=== PATIENT | male | born 1975 | race Caucasian/White ===

== ENCOUNTER → 2022-05-23 | Outpatient (CLI) | payer OTHER, SELFPAY ==
--- NOTE | 2022-05-23 13:53 | ECHOD_ITS ---
Reason For Study: HTN Procedure This was a 2D Doppler, Color Flow transthoracic echocardiogram. Exam performed in department. Left Ventricle Normal LV size. Left ventricular systolic function is normal. The estimated ejection fraction is 60 %. No regional wall motion abnormalities noted. Right Ventricle Normal RV size. Normal systolic function. Atria Normal left atrium. Normal right atrium. Mitral Valve Normal mitral valve. Tricuspid Valve Normal tricuspid valve. Aortic Valve Normal aortic valve. Trisinus/trileaflet aortic valve. Pulmonic Valve Normal pulmonic valve. Great Vessels Normal aortic root. The pulmonary artery is normal size. Normal inferior vena cava. Pericardium/Pleural No pericardial effusion. MMode/2D Measurements & Calculations LVIDd: 5.2 cm IVSd: 0.65 cm Ao root diam: 3.7 cm LVIDs: 3.2 cm LVPWd: 0.79 cm RVDd: 3.9 cm FS: 38.6 % LAV(MOD-bp): 58.9 ml LVAd ap4: 30.8 cm2 SV(MOD-sp4): 63.4 ml LAV(MOD-bp) Indexed: 26.5 ml/m2 LVLd ap4: 8.4 cm LAV(MOD-sp2): 73.6 ml EDV(MOD-sp4): 91.6 ml LAV(MOD-sp4): 41.1 ml EDV(sp4-el): 96.7 ml LVAs ap4: 15.0 cm2 LVLs ap4: 6.5 cm ESV(MOD-sp4): 28.2 ml ESV(sp4-el): 29.0 ml EF(MOD-sp4): 69.2 % EF(sp4-el): 70.0 % SV(sp4-el): 67.6 ml LA A4 area: 16.1 cm2 LA dimension(2D): 3.8 cm RA A4 area: 12.4 cm2 Time Measurements MV dec time: 0.24 sec Doppler Measurements & Calculations MV E max lico: 35.9 cm/sec Lat Peak E' Lico: 9.4 cm/sec Med Peak E' Lico: 5.5 cm/sec MV A max lico: 53.0 cm/sec E/E' lat: 3.8 E/E' med: 6.5 MV E/A: 0.68 MV V2 max: 57.8 cm/sec Ao V2 max: 141.8 cm/sec MV max P.3 mmHg MV dec slope: 210.2 cm/sec2 Ao max P.0 mmHg MV V2 mean: 38.5 cm/sec Ao V2 mean: 100.4 cm/sec MV mean P.65 mmHg Ao mean P.6 mmHg MV V2 VTI: 21.2 cm Ao V2 VTI: 32.1 cm LV V1 max: 109.1 cm/sec PA V2 max: 100.3 cm/sec TR max lico: 211.0 cm/sec LV V1 max P.8 mmHg TR max P.8 mmHg LV V1 mean P.8 mmHg LV V1 mean: 79.7 cm/sec LV V1 VTI: 25.1 cm ECHO/Echo Complete Interpretation Summary Normal LV size. Left ventricular systolic function is normal. The estimated ejection fraction is 60 %. Structurally normal valves. Ordering Physician: Omer Vences MD Referring Physician: Omer Vences Performed By: Rosanna Hayes RCS
== END | disposition home or self-care (01) ==
LOC: CVS 13:52
PROVIDERS: Referring Provider Internal Medicine Cardiovascular Disease; Visit Provider Internal Medicine Cardiovascular Disease
DX: I10 Essential (primary) hypertension (principal)
CPT/HCPCS: 93306

== ENCOUNTER → 2023-06-10 | Outpatient (CLI) | payer OTHER, SELFPAY ==
[2023-06-10 17:46] LABS: Anion Gap 7 (5-15); BUN 14 mg/dL (7-18); BUN/Creat Ratio 13.5 RATIO (10-20); Calcium,Total 8.9 mg/dL (8.5-10.1); Chloride 107 mmol/L (98-107); Creatinine, Serum 1.04 mg/dL (0.70-1.30); EST Glomerular Filtration Rate 82 mL/min (>60); Est Glom Filt Rate - Afr Amer 99 mL/min (>60); Glucose 148 mg/dL (74-106); Potassium 3.3 mmol/L (3.5-5.1); Sodium Level 139 mmol/L (136-145)
== END | disposition home or self-care (01) ==
LOC: LAB 16:50
PROVIDERS: Referring Provider Nurse Practitioner Gerontology; Visit Provider Nurse Practitioner Gerontology
DX: I10 Essential (primary) hypertension (principal)
CPT/HCPCS: 36415; 80048

== ENCOUNTER → 2023-07-19 | Outpatient (CLI) | payer OTHER, SELFPAY ==
[2023-07-19 09:44] LABS: Anion Gap 4 (5-15); BUN 13 mg/dL (7-18); Calcium,Total 8.7 mg/dL (8.5-10.1); Chloride 106 mmol/L (98-107); Creatinine, Serum 1.18 mg/dL (0.70-1.30); EST Glomerular Filtration Rate 71 mL/min (>60); Est Glom Filt Rate - Afr Amer 85 mL/min (>60); Glucose 135 mg/dL (74-106); Potassium 3.9 mmol/L (3.5-5.1); Sodium Level 141 mmol/L (136-145)
== END | disposition home or self-care (01) ==
LOC: LAB 08:52
PROVIDERS: Visit Provider Nurse Practitioner Gerontology
DX: I10 Essential (primary) hypertension (principal)
CPT/HCPCS: 36415; 80048

== ENCOUNTER → 2023-10-29 | Outpatient (CLI) | payer OTHER, SELFPAY ==
[2023-10-29 16:57] LABS: Anion Gap 4 (5-15); BUN 23 mg/dL (7-18); BUN/Creat Ratio 20.2 RATIO (10-20); Calcium,Total 9.1 mg/dL (8.5-10.1); Chloride 105 mmol/L (98-107); Creatinine, Serum 1.14 mg/dL (0.70-1.30); EST Glomerular Filtration Rate 73 mL/min (>60); Est Glom Filt Rate - Afr Amer 89 mL/min (>60); Glucose 88 mg/dL (74-106); Potassium 4.4 mmol/L (3.5-5.1); Sodium Level 137 mmol/L (136-145)
== END | disposition home or self-care (01) ==
LOC: LAB 16:02
PROVIDERS: Referring Provider Nurse Practitioner Family; Visit Provider Nurse Practitioner Family
DX: G47.19 Other hypersomnia (principal); I10 Essential (primary) hypertension
CPT/HCPCS: 36415; 80048

== ENCOUNTER 2024-09-16 07:15 | Day surgery (SDC) | payer OTHER, SELFPAY ==
--- NOTE | 2024-09-14 09:40 | PAT.ANESEVAL ---
PAT status Pat Assessment PAT Assessment: PAT Anesthesia Results to Eval 09/14/24 08:31 Pre-Assessment Diagnosis/Proposed Procedure Planned Operative Procedure(s): COLONOSCOPY Anesthesia History Anesthesia History - engineer soils: Anesthesia History - engineer soils Hx Hospitalization No 09/14/24 08:19 Any Problems With Anesthesia No 09/14/24 08:19 Cholinesterase deficiency No 09/14/24 08:19 You/Your Family Experience No 09/14/24 08:19 fever (hyperthermia) with Relationship Recent Exposure to Contagious Disease Does patient have nerve No 09/14/24 08:19 stimulator Patient instructed to have device shut off --Does patient have Pacemaker or ICD? When Was Last Pacemaker Check QUESTION #4 FULL TEXT: You/Your Family Experience fever (hyperthermia) with Anesthesia Last Oral Intake Last Oral intake: Last Oral Intake NPO since Meds taken in AM with sips of water? Meds patient instructed to take am of surgery PONV PONV - engineer soils: PONV - engineer soils Female No 09/14/24 08:19 HX of Motion Sickness No 09/14/24 08:19 HX of N/V After Surgery No 09/14/24 08:19 Non-Smoker Yes 09/14/24 08:19 Duration of Surgery greater No 09/14/24 08:19 than 60 minutes Number of Risk Factors 1 09/14/24 08:19 PONV Score Low Risk 09/14/24 08:19 Height & Weight Height & Weight: Anesthesia: Height & Weight Height 5 ft 11 in 09/06/24 13:46 Respiratory Assessment Respiratory Assessment - engineer soils: Respiratory Tract Infection Hx - engineer soils Hx Respiratory Tract Infection No 09/14/24 08:19 STOP Sleep Apnea STOP Sleep Apnea - engineer soils: STOP Sleep Apnea - engineer soils Hx Hypertension Yes 09/14/24 08:19 Hx Sleep Apnea No 09/14/24 08:19 CPAP BIPAP Do you snore loudly (louder No 09/14/24 08:19 than talking or can be heard Do you often feel tired/ No 09/14/24 08:19 fatigued/ sleepy during daytime? Has anyone observed you stop No 09/14/24 08:19 breathing during sleep? STOP Results Negative 09/14/24 08:19 QUESTION #5 FULL TEXT : Do you snore loudly (louder than talking or can be heard through closed doors)? 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 Specify any problems Hx of Preganancy in last 3 N/A 09/14/24 08:19 Months Nurse Filling Out Transfusion VLEHGREENBUSH 09/14/24 08:19 & Questions: Date: 09/14/24 09/14/24 08:19 Time: 08:09/14/24 08:19 Patient unable to answer at this time (ie. confused, unrespo /Reproduction History /Reproductive History - engineer soils: /Reproductive Hx- engineer soils Hx Now Gestational Age (in weeks): EDC: Hx Hx Para Hx Section SAB [facility] Medical History (Updated 09/14/24 @ 08:28 by Ruth Guerrero) Wears glasses Injury of back Seizures Gastric reflux Non-smoker Hypertension History of echocardiogram History of stress test Cardiology follow-up encounter Essential hypertension Obesity Home Medications ?Medication ?Instructions ?Recorded ?Last Taken ?Type amlodipine 10 mg tablet 10 mg PO DAILY #90 tabs 09/15/23 Unknown Rx omeprazole 20 mg capsule,delayed 20 mg PO DAILY #90 caps 09/15/23 Unknown Rx release spironolactone 25 mg tablet 25 mg PO DAILY #90 tabs 10/10/23 Unknown Rx lisinopril 10 mg tablet 10 mg PO DAILY #90 tabs 10/31/23 Unknown Rx Allergy/AdvReac Type Severity Reaction Status Date / Time No Known Allergies Allergy Verified 09/06/24 13:43 Family History (Updated 09/06/24 @ 13:43 by Lilli Castro) Brother Colon polyps Found younger than 45yrs Other Cancer Surgical History (Updated 09/14/24 @ 08:20 by Ruth Guerrero) History of vasectomy Pilonidal cyst Social History (Updated 09/06/24 @ 13:43 by Lilli Castro) household members: spouse current occupational status: employed Smoking Status: Never smoker alcohol intake: current alcohol intake frequency: a few times a month substance use type: does not use caffeine: Yes Type: coffee Number of servings: 5 Audit: Pertinent Findings Pertinent Findings EKG Perinent findings: nl 05/21 Stress test pertinent findings: nl 2021 Echo (EF%) pertinent findings: nl 2021
--- NOTE | 2024-09-14 10:09 | PAT.ANESEVAL ---
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 When Was Last Pacemaker Check QUESTION #4 FULL TEXT: You/Your Family Experience fever (hyperthermia) with Anesthesia Last Oral Intake Last Oral intake: Last Oral Intake NPO since Meds taken in AM with sips of water? Meds patient instructed to take am of surgery PONV PONV - loan service officer: PONV - loan service officer Female No 09/14/24 08:19 HX of Motion Sickness No 09/14/24 08:19 HX of N/V After Surgery No 09/14/24 08:19 Non-Smoker Yes 09/14/24 08:19 Duration of Surgery greater No 09/14/24 08:19 than 60 minutes Number of Risk Factors 1 09/14/24 08:19 PONV Score Low Risk 09/14/24 08:19 Height & Weight Height & Weight: Anesthesia: Height & Weight Height 5 ft 11 in 09/06/24 13:46 Respiratory Assessment Respiratory Assessment - loan service officer: Respiratory Tract Infection Hx - loan service officer Hx Respiratory Tract Infection No 09/14/24 08:19 STOP Sleep Apnea STOP Sleep Apnea - loan service officer: STOP Sleep Apnea - loan service officer Hx Hypertension Yes 09/14/24 08:19 Hx Sleep Apnea No 09/14/24 08:19 CPAP BIPAP Do you snore loudly (louder No 09/14/24 08:19 than talking or can be heard Do you often feel tired/ No 09/14/24 08:19 fatigued/ sleepy during daytime? Has anyone observed you stop No 09/14/24 08:19 breathing during sleep? STOP Results Negative 09/14/24 08:19 QUESTION #5 FULL TEXT : Do you snore loudly (louder than talking or can be heard through closed doors)? 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 Specify any problems Hx of Preganancy in last 3 N/A 09/14/24 08:19 Months Nurse Filling Out Transfusion VLEHROSS 09/14/24 08:19 & Questions: Date: 09/14/24 09/14/24 08:19 Time: 08:09/14/24 08:19 Patient unable to answer at this time (ie. confused, unrespo /Reproduction History /Reproductive History - loan service officer: /Reproductive Hx- loan service officer Hx Now Gestational Age (in weeks): EDC: Hx Hx Para Hx Section SAB [facility] Medical History (Updated 09/14/24 @ 08:28 by Ruth Guerrero) Wears glasses Injury of back Seizures Gastric reflux Non-smoker Hypertension History of echocardiogram History of stress test Cardiology follow-up encounter Essential hypertension Obesity Home Medications ?Medication ?Instructions ?Recorded ?Last Taken ?Type amlodipine 10 mg tablet 10 mg PO DAILY #90 tabs 09/15/23 Unknown Rx omeprazole 20 mg capsule,delayed 20 mg PO DAILY #90 caps 09/15/23 Unknown Rx release spironolactone 25 mg tablet 25 mg PO DAILY #90 tabs 10/10/23 Unknown Rx lisinopril 10 mg tablet 10 mg PO DAILY #90 tabs 10/31/23 Unknown Rx Allergy/AdvReac Type Severity Reaction Status Date / Time No Known Allergies Allergy Verified 09/06/24 13:43 Family History (Updated 09/06/24 @ 13:43 by Lilli Castro) Brother Colon polyps Found younger than 45yrs Other Cancer Surgical History (Updated 09/14/24 @ 08:20 by Ruth Guerrero) History of vasectomy Pilonidal cyst Social History (Updated 09/06/24 @ 13:43 by Lilli Castro) household members: spouse current occupational status: employed Smoking Status: Never smoker alcohol intake: current alcohol intake frequency: a few times a month substance use type: does not use caffeine: Yes Type: coffee Number of servings: 5 Audit: Pertinent Findings HISTORY of Pertinent Findings History of Pertinent Findings: EKG Pertinent Findings EKG Perinent findings 05/2109/14/24 09:44 Stress Test Pertinent Findings Stress test pertinent findings nl 202109/14/24 09:44 Echo Pertinent Findings Echo (EF%) pertinent findings nl 202109/14/24 09:44
[2024-09-16] VITALS (7 sets, daily range): BP systolic 106–139; BP diastolic 79–87; PULSE 64–80; RESP 16; TEMP 36.2–36.7; O2SAT 95–98; BMI 31.0
--- NOTE | 2024-09-16 | COLBX_PTH ---
PATIENT: JUAN SELLERS LOC: EN U#:[id number] AGE/SX: 49/M ROOM: RE09/16/[address]: Dr. Neel Roblero MD : 1975 BED: DIS: 09/16/2024 SPEC #: [id number] RECD: 09/16/24 13:26 STATUS: LIONEL ANNIE #: [id number] ELIZABETH: 09/16/24 00:[address]: Neel Roblero DEPT: SURGICAL PATHOLOGY RECD BY: Dave Mcgraw ENTERED: 09/16/24 13:27 SP TYPE: COLON BX OTHR DR: No Primary Care Phys Tissues: Ascending colon Procedures: Surgery Specimen Level IV HEADER OPERATION: Colonoscopy PRE-OP DIAGNOSIS: Encounter for screening for malignant neoplasm of colon TISSUE SUBMITTED: Ascending colon submucosal lipoma biopsy MICROSCOPIC DIAGNOSIS Ascending colon, biopsy: Fragments of colonic mucosa, no pathologic diagnosis. See navjot. 09/17 COMMENT Changes consistent with submucosal lipoma are not seen. Correlation with clinical, endoscopic findings and appropriate follow up are necessary. MICROSCOPIC DESCRIPTION Slides are reviewed. GROSS DESCRIPTION Received in fixative is one container labeled with the patient's name and designated Ascending colon submucosal lipoma biopsy. The specimen consists of two irregular fragments of light maradiaga soft tissue that in aggregate measure 0.6 x 0.2 x 0.1 cm. The specimen is totally submitted in one cassette. 09/16/2024 TC:4 CPT:19603
--- NOTE | 2024-09-16 07:46 | PRE.ANES_ITS ---
ASA Classification* ASA Classification ASA Classification: 2 Assessment & Plan Anesthesia* Anesthesia Assessment Anesthesia Assessment: Discussed sedation and/or anesthesia options, risks, benefits, and alternatives with patient/parents/legal guardian/POA. Questions invited. The patient/parents/legal guardian/POA seems to understand and agrees to proceed with anesthesia plan. Reviewed the physical assessment, medical history, allergy history and patient home medications list prior to surgery/procedure/anesthetic and documented any changes. Performed airway and anesthesia risk assessments. 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 When Was Last Pacemaker Check QUESTION #4 FULL TEXT: You/Your Family Experience fever (hyperthermia) with Anesthesia Last Oral Intake Last Oral intake: Last Oral Intake NPO since Meds taken in AM with sips of water? Meds patient instructed to take am of surgery PONV PONV - mobile home servicer: PONV - mobile home servicer Female No 09/14/24 08:19 HX of Motion Sickness No 09/14/24 08:19 HX of N/V After Surgery No 09/14/24 08:19 Non-Smoker Yes 09/14/24 08:19 Duration of Surgery greater No 09/14/24 08:19 than 60 minutes Number of Risk Factors 1 09/14/24 08:19 PONV Score Low Risk 09/14/24 08:19 Height & Weight Height & Weight: Anesthesia: Height & Weight Height 5 ft 11 in 09/06/24 13:46 Respiratory Assessment Respiratory Assessment - mobile home servicer: Respiratory Tract Infection Hx - mobile home servicer Hx Respiratory Tract Infection No 09/14/24 08:19 STOP Sleep Apnea STOP Sleep Apnea - mobile home servicer: STOP Sleep Apnea - mobile home servicer Hx Hypertension Yes 09/14/24 08:19 Hx Sleep Apnea No 09/14/24 08:19 CPAP BIPAP Do you snore loudly (louder No 09/14/24 08:19 than talking or can be heard Do you often feel tired/ No 09/14/24 08:19 fatigued/ sleepy during daytime? Has anyone observed you stop No 09/14/24 08:19 breathing during sleep? STOP Results Negative 09/14/24 08:19 QUESTION #5 FULL TEXT : Do you snore loudly (louder than talking or can be heard through closed doors)? 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 Specify any problems Hx of Preganancy in last 3 N/A 09/14/24 08:19 Months Nurse Filling Out Transfusion VLEHMAN 09/14/24 08:19 & Questions: Date: 09/14/24 09/14/24 08:19 Time: 08:29 09/14/24 08:19 Patient unable to answer at this time (ie. confused, unrespo /Reproduction History /Reproductive History - mobile home servicer: /Reproductive Hx- mobile home servicer Hx Now Gestational Age (in weeks): EDC: Hx Hx Para Hx Section SAB [facility] Medical History Wears glasses Injury of back Seizures Gastric reflux Non-smoker Hypertension History of echocardiogram History of stress test Cardiology follow-up encounter Essential hypertension Obesity Home Medications ?Medication ?Instructions ?Recorded ?Last Taken ?Type amlodipine 10 mg tablet 10 mg PO DAILY #90 tabs 09/15/23 09/16/24 Rx omeprazole 20 mg capsule,delayed 20 mg PO DAILY #90 caps 09/15/23 09/15/24 Rx release spironolactone 25 mg tablet 25 mg PO DAILY #90 tabs 10/10/23 09/15/24 Rx lisinopril 10 mg tablet 10 mg PO DAILY #90 tabs 10/31/23 09/15/24 Rx Allergy/AdvReac Type Severity Reaction Status Date / Time No Known Allergies Allergy Verified 09/06/24 13:43 Family History Brother Colon polyps Found younger than 45yrs Other Cancer Surgical History History of vasectomy Pilonidal cyst Social History household members: spouse current occupational status: employed Smoking Status: Never smoker alcohol intake: current alcohol intake frequency: a few times a month substance use type: does not use caffeine: Yes Type: coffee Number of servings: 5 Review of Systems (Anesthesia) ROS Narrative System reviewed and no additional complaints, except as documented.
--- NOTE | 2024-09-16 08:56 | HP.PCM_ITS ---
[facility] - General General Date of Service: 09/16/24 HPI Narrative JUAN SELLERS, is a 49 M who presents screening colonoscopy. He confirms his preappointment questionnaire that he has not experienced any change in her bowel habits-and particularly denies any notice of blood. He also shares that there is a family history of colonic polyps but denies any family history of GI illness to include diverticulitis, inflammatory bowel disease, or colon cancer. Lastly he confirms that his prep was completed successfully and that his output is now clear. As an aside he shares that he has had a foul-smelling discharge with working out and wonders if this can be investigated with today's exam. [facility] Medical History Wears glasses Injury of back Seizures Gastric reflux Non-smoker Hypertension History of echocardiogram History of stress test Cardiology follow-up encounter Essential hypertension Obesity Home Medications ?Medication ?Instructions ?Recorded ?Last Taken ?Type amlodipine 10 mg tablet 10 mg PO DAILY #90 tabs 09/15/23 09/16/24 Rx omeprazole 20 mg capsule,delayed 20 mg PO DAILY #90 caps 09/15/23 09/15/24 Rx release spironolactone 25 mg tablet 25 mg PO DAILY #90 tabs 10/10/23 09/15/24 Rx lisinopril 10 mg tablet 10 mg PO DAILY #90 tabs 10/31/23 09/15/24 Rx Allergy/AdvReac Type Severity Reaction Status Date / Time No Known Allergies Allergy Verified 09/06/24 13:43 Family History Brother Colon polyps Found younger than 45yrs Other Cancer Surgical History History of vasectomy Pilonidal cyst Social History household members: spouse current occupational status: employed Smoking Status: Never smoker alcohol intake: current alcohol intake frequency: a few times a month substance use type: does not use caffeine: Yes Type: coffee Number of servings: 5 Past Medical/Surgical History Planned Operation Planned Operative Procedure(s): COLONOSCOPY Previous Hospitalizations/Surgeries HX Hospitalizations: No Any Problems With Anesthesia: No You/Your Family Experience Fever (Hyperthermia) With Anes: No Cholinesterase deficiency: No Cardiovascular Hx Hypertension: Yes Respiratory Hx Sleep Apnea: No Hx Respiratory Tract Infection/Cold (presently): No Do You Snore Loudly (louder than talking or can be heard): No Do You Often Feel Tired/ Fatigued/ Sleepy Dring Daytime?: No Has Anyone Observed You Stop Breathing During Sleep?: No Result (for STOP score): Negative Smoking Status: Never smoker Neurological Does patient have nerve stimulator: No Miscellaneous Recent Exposure to Contagious Disease: No Allergies No Known Allergies Allergy (Verified 09/06/24 13:43) Discharge Is Pt Admitted From a Alf, or a Halfway: No Who Could Help: Vital Signs Vital Signs Vital Signs: 09/16/24 07:44 09/16/24 07:46 Temperature 98.1 F Temperature Source Temporal Pulse Rate 80 Respiratory Rate 16 Respiratory Pattern Normal Blood Pressure 139/87 H Blood Pressure Mean 104 Blood Pressure Source Monitor Blood Pressure Position Semi-Fowlers Blood Pressure Location Right Arm Pulse Ox 97 Oxygen Delivery Method Room Air Weight Weight: 222 lb 10.67 oz Body Mass Index (BMI) 31.0 Physical Exam Const alert, oriented x3 and no apparent distress Resp normal respiratory effort GI GI Narrative: Hirsute, obese, no visible scars, no visible herniations, soft, nontender to palpation x 4 quadrants Assessment & Plan Assessment/Plan (1) Encounter for screening for malignant neoplasm of colon: PLAN: Patient 49-year-old male who arrives for screening colonoscopy. He appears to be at potentially modestly increased risk for colon cancer reporting a family history of colonic polyps. This is his first endoscopic evaluation. He denies any concerning GI symptoms but is personally troubled by some foul- smelling discharge with workouts. There is a remote history of a pilonidal cystectomy. Based on patient's description I would be suspicious of some possible mild fecal incontinence related to his workouts but will perform an perirectal exam. All their questions were answered. Patient aware of timeframe for reporting any biopsy results. Will now proceed to the endoscopy suite for planned screening colonoscopy. Surgery Risks - Colonoscopy Risks Include but are not Limited To: Risks include but are not limited to: Bleeding, perforation requiring further surgery, inability to complete colonoscopy requiring barium enema.
--- NOTE | 2024-09-16 09:37 | OP.CCLET_ITS ---
09/16/2024 No Primary Care Physician Re : [facility] This procedure was performed on September. My impressions and recommendations are as follows: Impressions : - Hemorrhoids found on perianal exam. - Perianal skin tags found on perianal exam. - Medium-sized lipoma in the proximal ascending colon. Biopsied. - Internal hemorrhoids. No specimens collected. - The examination was otherwise normal. Recommendations : - Discharge patient to home (via wheelchair). - Resume previous diet today. - No aspirin, ibuprofen, naproxen, or other non-steroidal anti-inflammatory drugs for 2 days after biopsy. - Await pathology results. - Repeat colonoscopy in 10 years for screening purposes. - Telephone GI office for pathology results in 1 week. My findings are described in the full procedure note, which is enclosed. If I can be of further assistance, please feel free to contact me at Doctor phone number(s): , Work: . Sincerely, Neel Roblero MD 09/16/2024 9:37:10 AM This report has been signed electronically.
--- NOTE | 2024-09-16 09:37 | OP.COLON_ITS ---
Patient Name: Ben Norman Procedure Date: 09/16/2024 8:50 AM Date of : 1975 Age: 49 Procedure: Colonoscopy Indications: Colon cancer screening in patient at increased risk: Family history of 1st-degree relative with colon polyps Providers: Neel Roblero MD Referring MD: No Primary Care Physician Medicines: See the Anesthesia note for documentation of the administered medications Patient Profile: Refer to note in patient chart for documentation of history and physical. Last Colonoscopy: none. The patient's first colonoscopy is today. Complications: No immediate complications. Estimated blood loss: Minimal. Procedure: Pre-Anesthesia Assessment: - The heart rate, respiratory rate, oxygen saturations, blood pressure, adequacy of pulmonary ventilation, and response to care were monitored throughout the procedure. After I obtained informed consent, the scope was passed under direct vision. Throughout the procedure, the patient's blood pressure, pulse, and oxygen saturations were monitored continuously. The adult colonoscope was introduced through the anus and advanced to the cecum, identified by the appendiceal orifice, IC valve and transillumination. The colonoscopy was performed without difficulty. The patient tolerated the procedure well. The quality of the bowel preparation was good. Scope In: 9:05:20 AM Scope Withdrawal Time 0 hours 18 minutes 26 seconds Scope Out: 9:29:42 AM Total Procedure Duration Time 0 hours 24 minutes 22 seconds Findings: Hemorrhoids were found on perianal exam. Skin tags were found on perianal exam. There was a medium-sized lipoma, 20 mm in diameter, in the proximal ascending colon. Biopsies were taken with a cold forceps for histology. Estimated blood loss was minimal. Internal hemorrhoids were found during retroflexion and during perianal exam. The hemorrhoids were Grade III (internal hemorrhoids that prolapse but require manual reduction). No biopsies or other specimens were collected for this exam. The exam was otherwise without abnormality. Impression: - Hemorrhoids found on perianal exam. - Perianal skin tags found on perianal exam. - Medium-sized lipoma in the proximal ascending colon. Biopsied. - Internal hemorrhoids. No specimens collected. - The examination was otherwise normal. Recommendation: - Discharge patient to home (via wheelchair). - Resume previous diet today. - No aspirin, ibuprofen, naproxen, or other non-steroidal anti-inflammatory drugs for 2 days after biopsy. - Await pathology results. - Repeat colonoscopy in 10 years for screening purposes. - Telephone GI office for pathology results in 1 week. 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 All rights reserved. The codes documented in this report are preliminary and upon cloth tester quality review may be revised to meet current compliance requirements. Neel Roblero MD 09/16/2024 9:37:10 AM This report has been signed electronically. Number of Addenda: 0 Note Initiated On: 09/16/2024 8:50 AM
--- NOTE | 2024-09-16 09:41 | PCM.POST.ANE ---
Anesthesia: Postop Eval I Current Vital Signs Temperature: 97.1 F Pulse Rate: 67 Blood Pressure: 110/85 Respiratory Rate: 16 Pulse Ox: 95 Oxygen Delivery Method: Room Air Assessment Airway patent: Yes Spontaneous unlabored respirations: Yes Mental status: Asleep nausea: No Vomiting: No Anesthesia Complication: No Fluid Hydration Crystalloid volume administer (ml): 90 Total IV fluid infused: 90 Progress Note Anesthesia document: Postop Eval 1 completed: Yes
--- NOTE | 2024-09-16 11:05 | PCM.POSTANE2 ---
Anesthesia Postop Eval I Sum Postop Eval Completion status Anesthesia document: Postop Eval 1 completed: Yes Anesthesia Postop Eval I Summary Anesthesia Postop Eval I Summary: Anesthesia Postop Eval I: Assessment Summary Airway patent Yes 09/16/24 09:42 [email or web address] Spontaneous unlabored Yes 09/16/24 09:42 [email or web address] respirations Mental status Asleep 09/16/24 09:42 [email or web address] nausea No 09/16/24 09:42 [email or web address] Vomiting No 09/16/24 09:42 [email or web address] Anesthesia Postop Eval I: Fluid Summary Crystalloid volume administer 90 09/16/24 09:42 [email or web address] (ml) Colloids volume administered ( ml) Blood Product volume administered (ml) Total IV fluid infused 90 09/16/24 09:42 [email or web address] Anesthesia Postop Eval I: Summary Notes Anesthesia Complication No 09/16/24 09:42 [email or web address] Anesthesia Complication Comment: Post-operative progress note Anesthesia: Postop Eval II Evaluation Mental status: Awake Pain Level: 0 nausea: No Vomiting: No
== END 2024-09-16 10:50 | disposition home or self-care (01) ==
LOC: EN 07:15 → AC 07:17
PROVIDERS: Visit Provider Surgery
PROC: 0DJD8ZZ Inspection of Lower Intestinal Tract, Via Natural or Artificial Opening Endoscopic (ICD-10-PCS; CPT 45378; principal; 2024-09-16 08:25)
DX: Z12.11 Encounter for screening for malignant neoplasm of colon (principal); I10 Essential (primary) hypertension; K64.4 Residual hemorrhoidal skin tags; K64.2 Third degree hemorrhoids; Z83.719 Family history of colon polyps, unspecified; D17.5 Benign lipomatous neoplasm of intra-abdominal organs; Z98.52 Vasectomy status
CPT/HCPCS: 45380; 88305; A4216; J2405

== ENCOUNTER → 2025-01-07 | Outpatient (CLI) | payer OTHER, SELFPAY ==
[2025-01-07 10:52] LABS: Absolute Lymphocyte Count 1.34 X10^3/uL (0.83-4.51); Absolute Neutrophil Count 3.1 X10^3/uL (2.0-7.7); Basophil# 0.03 X10^3/uL; Basophil% 0.6 % (0-1); Eosinophil# 0.11 X10^3/uL; Eosinophils% 2.2 % (0-5); Hemoglobin 15.1 g/dL (13.0-16.5); Lymphocyte # 1.34 X10^3/ul (0.83-4.51); Lymphocyte % 27.2 % (19-41); Mean Corp Hgb Conc 33.6 g/dL (32-36); Mean Corpuscular Hgb 30.3 pg (27.0-32.0); Mean Corpuscular Volume 90.4 fL (80-94); Mean Platelet Vol. 10.3 fl (6.2-12.0); Monocyte# 0.35 X10^3/uL; Monocyte% 7.1 % (0-10); NRBC Flagged by Analyzer 0 % (0-5); Neutrophil # 3.08 X10^3/uL (2.7-7.7); Neutrophil % 62.5 % (47-70); Platelet Count 257 K/mm3 (150-450); RBC Distribution Width CV 11.9 % (11.6-14.6); RBC Distribution Width SD 39.5 fl (35.1-43.9); Red Blood Count 4.98 M/mm3 (4.6-6.2); White Blood Count 4.9 K/mm3 (4.4-11.0)
[2025-01-07 12:46] LABS: AST(SGOT) 31 U/L (<=37); Alanine Aminotransfer ALT/SGPT 37 U/L (<=46); Albumin, Serum 4.3 g/dL (3.5-5.0); Alkaline Phosphatase 79 U/L (40-129); Anion Gap 14 (5-15); BUN 18 mg/dL (4-19); BUN/Creat Ratio 17.8 RATIO (10-20); Bilirubin, Direct < 0.08 mg/dL (0.00-0.30); Calcium,Total 9.6 mg/dL (7.6-11.0); Carbon Dioxide 21.1 mmol/L (21.0-32.0); Chloride 104 mmol/L (98-108); Cholesterol 222 mg/dL (<=200); EST Glomerular Filtration Rate 93 (>60); Globulin 3.6 g/dL (2.2-4.2); Glucose 103 mg/dL (70-99); High Density Lipoprotein 41 mg/dL; Low Density Lipoprotein Calc. 152 mg/dL; Potassium 4.6 mmol/L (3.3-5.1); Protein, Total 7.9 g/dL (5.9-8.4); Sodium Level 140 mmol/L (133-145); Total Bilirubin 0.37 mg/dL (0.00-1.30); Triglycerides 143 mg/dL; Very Low Density Lipoprotein 29 mg/dL (5-40); cholesterol:hdl ratio screen 5.38
[2025-01-07 12:49] LABS: Hemoglobin A1c 6.1 % (<=5.6)
== END | disposition home or self-care (01) ==
LOC: LAB 10:22
PROVIDERS: Referring Provider Internal Medicine Cardiovascular Disease; Visit Provider Internal Medicine Cardiovascular Disease
DX: R03.0 Elevated blood-pressure reading, without diagnosis of hypertension (principal); G47.19 Other hypersomnia
CPT/HCPCS: 36415; 80048; 80061; 80076; 83036; 84443; 85025